=== PATIENT | male | born 1995 | race Caucasian/White ===

== ENCOUNTER 2022-04-11 15:45 | Emergency (ER) | payer OTHER ==
[2022-04-11 16:08] LABS: HEMOGLOBIN 15.6 gm/dl (14.0-17.5); RED BLOOD COUNT 5.01 M/UL (4.20-5.50); WHITE BLOOD COUNT 6.4 K/UL (4.5-11.0)
[2022-04-11 16:35] LABS: BUN/CREATININE RATIO 10 (0-10)
== END 2022-04-11 18:47 | disposition home or self-care (01) ==
LOC: ER1 15:45
PROVIDERS: Student in an Organized Health Care Education/Training Program
DX: R07.89 Other chest pain (principal); F17.200 Nicotine dependence, unspecified, uncomplicated; Z88.0 Allergy status to penicillin
CPT/HCPCS: 71046; 80053; 82550; 82553; 84484; 85025; 93005; 99285

== ENCOUNTER 2022-05-06 17:57 | Emergency (ER) | payer OTHER ==
[2022-05-06 19:52] LABS: RED BLOOD COUNT 5.14 M/UL (4.20-5.50); WHITE BLOOD COUNT 6.7 K/UL (4.5-11.0)
[2022-05-06 20:21] LABS: BUN/CREATININE RATIO 9 (0-10)
== END 2022-05-06 21:35 | disposition home or self-care (01) ==
LOC: ER1 17:57
PROVIDERS: Nurse Practitioner
DX: R07.89 Other chest pain (principal); I10 Essential (primary) hypertension; Z88.0 Allergy status to penicillin; F17.210 Nicotine dependence, cigarettes, uncomplicated; Z20.822 Contact with and (suspected) exposure to COVID-19
CPT/HCPCS: 0240U; 71045; 80053; 80307; 81001; 82550; 82553; 84484; 85025; 93005; 99285; G0480